=== PATIENT | female | born 1945 | race Caucasian/White ===

== ENCOUNTER 2017-09-24 13:17 | Inpatient (IN) | payer MEDICARE ==
[~2017-09-24] VITALS: Ht 157.5 cm; Wt 56.3 kg
[2017-09-24] VITALS (9 sets, daily range): BP systolic 141–169; BP diastolic 67–99; PULSE 68–89; RESP 14–24; TEMP 97.5–98.3; O2SAT 98–100
[~2017-09-24 13:17] MED LIST: ASPI-516 CHEW; BRIL90TA PO; CARV3.125 PO; EZET10 PO; FAMO1TAB37 PO; LEVO88TA2 PO
[2017-09-24] MEDS ORDERED: IOHEXOL 350 MG/ML 10 ML VIAL (for RAD DIAG) IVCONTRAST ONE (13:18)
[2017-09-24] MEDS ORDERED: SODIUM CHLORIDE 0.9% FLUSH 10 ML FLUSH IVF PRN (14:00)
[2017-09-24 14:23] LABS: AUTOMATED NEUTROPHIL # 8.8 TH/MM3 (1.8-7.7); BASOPHIL % 0.3 % (0.0-2.0); EOSINOPHIL # 0.1 TH/MM3 (0-0.4); HEMOGLOBIN 13.2 GM/DL (11.6-15.3); LYMPH % 12.4 % (9.0-44.0); LYMPHOCYTE # 1.4 TH/MM3 (1.0-4.8); MEAN CELL VOLUME 86.4 FL (80.0-100.0); MEAN CORPUSCULAR HEMOGLOBIN 30.8 PG (27.0-34.0); MEAN CORPUSCULAR HGB CONC 35.6 % (32.0-36.0); MEAN PLATELET VOLUME 7.5 FL (7.0-11.0); MONO % 10.7 % (0.0-8.0); MONOCYTE # 1.2 TH/MM3 (0-0.9); NEUT % 75.6 % (16.0-70.0); PLATELET COUNT 346 TH/MM3 (150-450); RED BLOOD COUNT 4.28 MIL/MM3 (4.00-5.30); RED CELL DISTRIBUTION WIDTH 14.7 % (11.6-17.2); WHITE BLOOD COUNT 11.6 TH/MM3 (4.0-11.0)
--- NOTE | 2017-09-24 14:24 | RADRPT ---
EXAM DATE/TIME: 09/24/2017 14:11 [facility] COMPARISON: CHEST SINGLE AP, September 18, 2017, 16:54. INDICATIONS : Shortness of breath starting today MEDICAL HISTORY : Cardiovascular disease SURGICAL HISTORY : Stent placement ENCOUNTER: Initial ACUITY: 1 day PAIN SCORE: 0/10 LOCATION: Bilateral chest FINDINGS: The heart size is normal. There is increased density at the bases bilaterally. There is blunting of t he costophrenic angles bilaterally being worse in the left. The mid and upper lungs are clear. CONCLUSION: Suspected mild bilateral pleural effusions being worse on the left with some accompanying atelectasis or consolidation at the bases. Bryan Gibbs MD on September 24, 2017 at 14:21 Board Certified Radiologist. This report was verified electronically.
[2017-09-24] MEDS ORDERED: FAMO1TAB37 PO (14:34)
[2017-09-24 14:35] LABS: PROTHROMBIN TIME - PATIENT 10.5 SEC (9.8-11.6)
[2017-09-24 14:48] LABS: ALBUMIN 2.7 GM/DL (3.4-5.0); ALKALINE PHOSPHATASE 80 U/L (45-117); ALT (GPT) 42 U/L (10-53); AST (GOT) 32 U/L (15-37); BICARBONATE 27.1 MEQ/L (21.0-32.0); BLOOD UREA NITROGEN 13 MG/DL (7-18); CALCIUM 8.6 MG/DL (8.5-10.1); CHLORIDE 102 MEQ/L (98-107); CREATININE 0.92 MG/DL (0.50-1.00); GLOMERULAR FILTRATION RATE 60 ML/MIN (>89); GLUCOSE,RANDOM 95 MG/DL (74-106); SODIUM (NA) 136 MEQ/L (136-145); TOTAL PROTEIN 6.7 GM/DL (6.4-8.2)
--- NOTE | 2017-09-24 16:33 | RADRPT ---
EXAM DATE/TIME: 09/24/2017 16:16 [facility] COMPARISON: No previous studies available for comparison. INDICATIONS : Shortness of breath, recent myocardial infarction. IV CONTRAST: 50 cc Omnipaque 350 (iohexol) IV RADIATION DOSE: 6.99 CTDIvol (mGy) MEDICAL HISTORY : Myocardial infarction. Cardiovascular disease SURGICAL HISTORY : Coronary artery stent. ENCOUNTER: Initial ACUITY: 1 day PAIN SCALE: 0/10 LOCATION: Bilateral chest TECHNIQUE: Volumetric scanning of the chest was performed using a pulmonary embolism protocol MIP images were re constructed. Using automated exposure control and adjustment of the mA and/or kV according to patien t size, radiation dose was kept as low as reasonably achievable to obtain optimal diagnostic quality images. DICOM format image data is available electronically for review and comparison. Follow-up recommendations for detected pulmonary nodules are based at a minimum on nodule size and pa tient risk factors according to Fleischner Society Guidelines. FINDINGS: PULMONARY ARTERIES: No filling defects are seen in the pulmonary arteries through the segmental level. LUNGS: There is a mild interstitial infiltrates bilaterally. There is small to moderate bilateral pleural ef fusions. There is compressive atelectasis in both lower lungs. PLEURAE: Small to moderate bilateral effusions. MEDIASTINUM: There is good visualization of the great vessels of the middle mediastinum. No evidence of mediastin al or hilar adenopathy/mass. MUSCULOSKELETAL: Within normal limits for patient age. MISCELLANEOUS: The visualized upper abdominal organs demonstrate no acute abnormality. CONCLUSION: 1. No evidence of PE. 2. Pulmonary edema with small to moderate bilateral pleural effusions and bibasilar atelectasis. Piero Higuera MD on September 24, 2017 at 16:30 Board Certified Radiologist. This report was verified electronically.
--- NOTE | 2017-09-24 17:06 | EKG ---
Date Performed: 09/24/2017 Time Performed: 13:48:36 PTAGE: 72 years EKG: Sinus rhythm LEFT BUNDLE BRANCH BLOCK ABNORMAL ECG PREVIOUS TRACING : 09/19/2017 04.23 Compared to previous tracing, QRS duration has increased sl ightly. DOCTOR: Ethan Holland Interpretating Date/Time 09/24/2017 17:05:32
[2017-09-24] MEDS ORDERED: FUROSEMIDE 40 MG/4 ML VIAL IV PUSH ONE (17:15)
[2017-09-24] MEDS ORDERED: POTASSIUM CHLORIDE 10 MEQ CONTROLLED RELEASE TAB PO ONE (17:15)
--- NOTE | 2017-09-24 17:23 | PD ---
HPI Chief Complaint: Respiratory Symptoms Time Seen by Provider: 13:43 Travel History International Travel<30 days: No Contact w/Intl Traveler<30days: No Traveled to known affect area: No History of Present Illness HPI Patient is a 72-year-old female who comes in complaining of shortness of breath. She was discharged yesterday after being admitted with a STEMI and having a stent placed. She says she was feeling okay, she went home and when she went to sleep last night she could not breathe. She says she tries sitting up in the chair and this did not help. She denies having any more chest pain. She says she feels like her abdomen is bloated. She denies nausea or vomiting. She denies fever chills. She has never had these symptoms before. Severity is moderate. PFSH Past Medical History Hx Anticoagulant Therapy: Yes Heart Rhythm Problems: Yes (PALPATATIONS) Cancer: No Cardiovascular Problems: Yes High Cholesterol: Yes Coronary Artery Disease: Yes Endocrine: No Genitourinary: No Musculoskeletal: No Neurologic: No Psychiatric: No Reproductive: No Respiratory: No Myocardial Infarction: Yes Past Surgical History Abdominal Surgery: Yes Cardiac Surgery: Yes (HEART CATH X2 IN PAST) Coronary Stent: Yes Ear Surgery: No Endocrine Surgery: No Eye Surgery: No Genitourinary Surgery: No Gynecologic Surgery: Yes (C SECTION) Oral Surgery: No Thoracic Surgery: No Other Surgery: Yes Social History Alcohol Use: No Tobacco Use: No Substance Use: No Allergies-Medications (Allergen,Severity, Reaction): Coded Allergies: NSAIDS (Non-Steroidal Anti-Inflamma (Verified Allergy, Unknown, 09/24/17) morphine (Verified Allergy, Unknown, 09/24/17) CHEST PAIN prednisone (Verified Allergy, Unknown, 09/24/17) CHEST PAIN Uncoded Allergies: CHOLESTEROL MEDICATIONS (Allergy, Unknown, 09/18/17) Reported Meds & Prescriptions Reported Meds & Active Scripts Active Brilinta (Ticagrelor) 90 Mg Tab 90 Mg PO BID Coreg (Carvedilol) 3.125 Mg Tab 3.125 Mg PO Q12HR Reported Pepcid (Famotidine) 20 Mg Tab 10 Mg PO BID Levothyroxine (Levothyroxine Sodium) 88 Mcg Tab 88 Mcg PO DAILY Aspirin 81 Mg Chew 81 Mg CHEW DAILY Review of Systems Except as stated in HPI: all other systems reviewed are Neg General / Constitutional: No: Fever, Chills Eyes: No: Blurred Vision HENT: No: Headaches, Lightheadedness Cardiovascular: No: Chest Pain or Discomfort Respiratory: Positive: Cough, Shortness of Breath Gastrointestinal: No: Nausea, Vomiting Musculoskeletal: No: Myalgias, Edema Skin: No Rash, No Change in Pigmentation Neurologic: No: Weakness, Dizziness Physical Exam Narrative GENERAL: Awake alert, in no acute distress. SKIN: Focused skin assessment warm/dry. HEAD: Atraumatic. Normocephalic. EYES: Pupils equal and round. No scleral icterus. ENT: Mucous membranes pink and moist. NECK: Trachea midline. No JVD. CARDIOVASCULAR: Regular rate and rhythm. No murmur appreciated. RESPIRATORY: No accessory muscle use. decreased breath sounds as well as crackles at both lung bases. Breath sounds equal bilaterally. GASTROINTESTINAL: Abdomen soft, non-tender, nondistended. Hepatic and splenic margins not palpable. MUSCULOSKELETAL: No obvious deformities. No clubbing. No cyanosis. No edema. NEUROLOGICAL: Awake and alert. No obvious cranial nerve deficits. Motor grossly within normal limits. Normal speech. PSYCHIATRIC: Appropriate mood and affect; insight and judgment normal. Data Data Last Documented VS Vital Signs Date Time Temp Pulse Resp B/P (MAP) Pulse Ox O2 Delivery O2 Flow Rate FiO2 09/24/17 15:28 76 19 169/79 (109) 100 Nasal Cannula 2.00 09/24/17 13:18 98.3 Orders Orders Complete Blood Count With Diff (09/24/17 13:52) Comprehensive Metabolic Panel (09/24/17 13:52) Act Partial Throm Time (Ptt) (09/24/17 13:52) Prothrombin Time / Inr (Pt) (09/24/17 13:52) Ckmb (Isoenzyme) Profile (09/24/17 13:52) Troponin I (09/24/17 13:52) Iv Access Insert/Monitor (09/24/17 13:52) Ecg Monitoring (09/24/17 13:52) Oximetry (09/24/17 13:52) Oxygen Administration (09/24/17 13:52) Chest, Single Ap (09/24/17 13:52) Ct Pulmonary Angiogram (09/24/17 13:52) Sodium Chloride 0.9% Flush (Ns Flush) (09/24/17 14:00) B-Type Natriuretic Peptide (09/24/17 13:55) CKMB (09/24/17 14:05) CKMB% (09/24/17 14:05) Electrocardiogram (09/24/17 13:48) Iohexol 350 Inj (Omnipaque 350 Inj) (09/24/17 13:18) Furosemide Inj (Lasix Inj) (09/24/17 17:15) Potassium Chloride (Kcl) (09/24/17 17:15) Admit Order (Ed Use Only) (09/24/17 ) Labs Laboratory Tests Test 09/24/17 14:05 White Blood Count 11.6 TH/MM3 Red Blood Count 4.28 MIL/MM3 Hemoglobin 13.2 GM/DL Hematocrit 37.0 % Mean Corpuscular Volume 86.4 FL Mean Corpuscular Hemoglobin 30.8 PG Mean Corpuscular Hemoglobin Concent 35.6 % Red Cell Distribution Width 14.7 % Platelet Count 346 TH/MM3 Mean Platelet Volume 7.5 FL Neutrophils (%) (Auto) 75.6 % Lymphocytes (%) (Auto) 12.4 % Monocytes (%) (Auto) 10.7 % Eosinophils (%) (Auto) 1.0 % Basophils (%) (Auto) 0.3 % Neutrophils # (Auto) 8.8 TH/MM3 Lymphocytes # (Auto) 1.4 TH/MM3 Monocytes # (Auto) 1.2 TH/MM3 Eosinophils # (Auto) 0.1 TH/MM3 Basophils # (Auto) 0.0 TH/MM3 CBC Comment DIFF FINAL Differential Comment Prothrombin Time 10.5 SEC Prothromb Time International Ratio 1.0 RATIO Activated Partial Thromboplast Time 24.7 SEC Blood Urea Nitrogen 13 MG/DL Creatinine 0.92 MG/DL Random Glucose 95 MG/DL Total Protein 6.7 GM/DL Albumin 2.7 GM/DL Calcium Level 8.6 MG/DL Alkaline Phosphatase 80 U/L Aspartate Amino Transf (AST/SGOT) 32 U/L Alanine Aminotransferase (ALT/SGPT) 42 U/L Total Bilirubin 1.0 MG/DL Sodium Level 136 MEQ/L Potassium Level 3.3 MEQ/L Chloride Level 102 MEQ/L Carbon Dioxide Level 27.1 MEQ/L Anion Gap 7 MEQ/L Estimat Glomerular Filtration Rate 60 ML/MIN Total Creatine Kinase 114 U/L Creatine Kinase MB 1.6 NG/ML Troponin I 2.70 NG/ML B-Type Natriuretic Peptide 1002 PG/ML MDM Medical Decision Making Medical Screen Exam Complete: Yes Emergency Medical Condition: Yes Medical Record Reviewed: Yes Interpretation(s) ECG shows left bundle branch block Differential Diagnosis CHF versus pneumonia versus PE Narrative Course Patient is a 72-year-old female who comes in complaining of shortness of breath. She was just discharged after having a STEMI. Exam shows decreased breath sounds and crackles at both lung bases. IV established, labs sent. Chest x-ray shows bilateral pleural effusions. BNP is elevated to 1000. Troponin is elevated, but it is coming down from where it was. CTA of the chest shows no evidence of PE, there are bilateral pleural effusions. Patient given a dose of Lasix and potassium. She will be admitted for further management. Last 24 hours Impressions Chest X-Ray 09/24/17 1352 Signed Impressions: Service Date/Time: Sunday, September 24, 2017 14:11 - CONCLUSION: Suspected mild bilateral pleural effusions being worse on the left with some accompanying atelectasis or consolidation at the bases. Bryan Gibbs MD CT Angiography 09/24/17 1352 Signed Impressions: Service Date/Time: Sunday, September 24, 2017 16:16 - CONCLUSION: 1. No evidence of PE. 2. Pulmonary edema with small to moderate bilateral pleural effusions and bibasilar atelectasis. Piero Higuera MD Diagnosis Primary Impression: CHF (congestive heart failure) Qualified Codes: I50.21 - Acute systolic (congestive) heart failure Admitting Information Admitting Physician Requests: Admit Yasmin Chahal MD Sep 24, 2017 17:23
--- NOTE | 2017-09-24 17:56 | HHI.HP ---
[facility] No Primary Care Physician Admission Diagnosis CHF exacerbation Diagnoses: Travel History International Travel<30 Days: No Contact w/Intl Traveler <30 Da: No Traveled to Known Affected Are: No History of Present Illness SOB that began last night she tried to lay down. Coughing began when she was in the hospital repots that she gained 10LB. cough since she was in the hospital but feels like something is stuck NO CHF history Past Family Social History Allergies: Coded Allergies: NSAIDS (Non-Steroidal Anti-Inflamma (Verified Allergy, Unknown, 09/24/17) morphine (Verified Allergy, Unknown, 09/24/17) CHEST PAIN prednisone (Verified Allergy, Unknown, 09/24/17) CHEST PAIN Uncoded Allergies: CHOLESTEROL MEDICATIONS (Allergy, Unknown, 09/18/17) Physical Exam Vital Signs Vital Signs Date Time Temp Pulse Resp B/P (MAP) Pulse Ox O2 Delivery O2 Flow Rate FiO2 09/24/17 15:28 76 19 169/79 (109) 100 Nasal Cannula 2.00 09/24/17 14:12 82 22 164/86 (112) 100 Room Air 09/24/17 13:56 100 Room Air 09/24/17 13:56 100 Room Air 09/24/17 13:51 100 Room Air 09/24/17 13:18 98.3 87 14 163/99 (120) 100 Room Air Physical Exam GENERAL: This is a well-nourished, well-developed patient, in no apparent distress. SKIN: No rashes, ecchymoses or lesions. Cool and dry. HEAD: Atraumatic. Normocephalic. No temporal or scalp tenderness. EYES: Pupils equal round and reactive. Extraocular motions intact. No scleral icterus. No injection or drainage. ENT: Nose without bleeding, purulent drainage or septal hematoma. Throat without erythema, tonsillar hypertrophy or exudate. Uvula midline. Airway patent. NECK: Trachea midline. No JVD or lymphadenopathy. Supple, nontender, no meningeal signs. CARDIOVASCULAR: Regular rate and rhythm without murmurs, gallops, or rubs. RESPIRATORY: Clear to auscultation. Breath sounds equal bilaterally. No wheezes , rales, or rhonchi. GASTROINTESTINAL: Abdomen soft, non-tender, nondistended. No hepato-splenomegaly , or palpable masses. No guarding. MUSCULOSKELETAL: Extremities without clubbing, cyanosis, or edema. No joint tenderness, effusion, or edema noted. No calf tenderness. Negative Homans sign bilaterally. NEUROLOGICAL: Awake and alert. Cranial nerves II through XII intact. Motor and sensory grossly within normal limits. Five out of 5 muscle strength in all muscle groups. Normal speech. Laboratory Laboratory Tests Test 09/24/17 14:05 White Blood Count 11.6 Red Blood Count 4.28 Hemoglobin 13.2 Hematocrit 37.0 Mean Corpuscular Volume 86.4 Mean Corpuscular Hemoglobin 30.8 Mean Corpuscular Hemoglobin Concent 35.6 Red Cell Distribution Width 14.7 Platelet Count 346 Mean Platelet Volume 7.5 Neutrophils (%) (Auto) 75.6 Lymphocytes (%) (Auto) 12.4 Monocytes (%) (Auto) 10.7 Eosinophils (%) (Auto) 1.0 Basophils (%) (Auto) 0.3 Neutrophils # (Auto) 8.8 Lymphocytes # (Auto) 1.4 Monocytes # (Auto) 1.2 Eosinophils # (Auto) 0.1 Basophils # (Auto) 0.0 CBC Comment DIFF FINAL Differential Comment Prothrombin Time 10.5 Prothromb Time International Ratio 1.0 Activated Partial Thromboplast Time 24.7 Blood Urea Nitrogen 13 Creatinine 0.92 Random Glucose 95 Total Protein 6.7 Albumin 2.7 Calcium Level 8.6 Alkaline Phosphatase 80 Aspartate Amino Transf (AST/SGOT) 32 Alanine Aminotransferase (ALT/SGPT) 42 Total Bilirubin 1.0 Sodium Level 136 Potassium Level 3.3 Chloride Level 102 Carbon Dioxide Level 27.1 Anion Gap 7 Estimat Glomerular Filtration Rate 60 Total Creatine Kinase 114 Creatine Kinase MB 1.6 Troponin I 2.70 B-Type Natriuretic Peptide 1002 Result Diagram: 09/24/17 1405 09/24/17 1405 Caprini VTE Risk Assessment Caprini Risk Assessment Model Point Value = 1 Point Value = 2 Point Value = 3 Point Value = 5 Age 41-60 Minor surgery BMI > 25 kg/m2 Swollen legs Varicose veins or History of unexplained or recurrent spontaneous Oral contraceptives or hormone replacement Sepsis (< 1 month) Serious lung disease, including pneumonia (< 1 month) Abnormal pulmonary function Acute myocardial infarction Congestive heart failure (< 1 month) History of inflammatory bowel disease Medical patient at bed rest Age 61-74 Arthroscopic surgery Major open surgery (> 45 min) Laparoscopic surgery (> 45 min) Malignancy Confined to bed (> 72 hours) Immobilizing plaster cast Central venous access Age >= 75 History of VTE Family history of VTE Factor V Leiden Prothrombin [id number] Lupus anticoagulant Anticardiolipin antibodies Elevated serum homocysteine Heparin-induced thrombocytopenia Other congenital or acquired thrombophilia Stroke (< 1 month) Elective arthroplasty Hip, pelvis, or leg fracture Acute spinal cord injury (< 1 month) Prophylaxis Regimen Total Risk Factor Score Risk Level Prophylaxis Regimen 0-1 Low Early ambulation 2 Moderate Order ONE of the following: *Sequential Compression Device (SCD) *Heparin 5000 units SQ BID 3-4 Higher Order ONE of the following medications: *Heparin 5000 units SQ TID *Enoxaparin/Lovenox 40 mg SQ daily (WT < 150 kg, CrCl > 30 mL/min) *Enoxaparin/Lovenox 30 mg SQ daily (WT < 150 kg, CrCl > 10-29 mL/min) *Enoxaparin/Lovenox 30 mg SQ BID (WT < 150 kg, CrCl > 30 mL/min) AND/OR *Sequential Compression Device (SCD) 5 or more Highest Order ONE of the following medications: *Heparin 5000 units SQ TID (Preferred with Epidurals) *Enoxaparin/Lovenox 40 mg SQ daily (WT < 150 kg, CrCl > 30 mL/min) *Enoxaparin/Lovenox 30 mg SQ daily (WT < 150 kg, CrCl > 10-29 mL/min) *Enoxaparin/Lovenox 30 mg SQ BID (WT < 150 kg, CrCl > 30 mL/min) AND *Sequential Compression Device (SCD) Physician Certification Order for Inpatient Services The services are ordered in accordance with Medicare regulations or non- Medicare payer requirements, as applicable. In the case of services not specified as inpatient-only, they are appropriately provided as inpatient services in accordance with the 2-midnight benchmark. days is the estimated time the patient will need to remain in the hospital, assuming treatment plan goals are met and no additional complications. Masha Salas Sep 24, 2017 17:56
--- NOTE | 2017-09-24 18:08 | HHI.HP ---
[facility] No Primary Care Physician Admission Diagnosis CHF exacerbation Diagnoses: (1) CHF (congestive heart failure) Diagnosis: Principal (2) Atrial fibrillation Chief Complaint: Shortness breath Travel History International Travel<30 Days: No Contact w/Intl Traveler <30 Da: No Traveled to Known Affected Are: No History of Present Illness Ms. Grigsby is a 72-year-old female with past medical history A. fib, CAD with recent NSTEMI, cardiac shock and hypothyroidism who was recently discharged on 09/23. Patient was recently admitted on 09/18 for NSTEMI and underwent PCI to RCA by . Patient subsequently developed hypotension treated with IV pressors. She also developed anemia due and right groin hematoma for which GI was consulted. Patient was transfused with 2 units of PRBCs, no EGD or colonoscopy done by GI services. She was cleared for discharge and went home. Patient reports that yesterday after leaving she began to experience shortness of breath when lying down and trying to go to bed. Sitting up and resting will decrease shortness of breath, lying down and activity will exacerbate SOB. She also reports cough which is nonproductive. She denies any fevers, chills, nausea, vomiting, diarrhea or headaches. Patient reports since leaving hospital she has noticed that her clothing has fit tighter and she is also feel tighter. Since being in the hospital reports that she has gained 10 pounds. Currently she is seen and examined sitting on the bedside commode and reports she just received Lasix. Currently she denies any shortness of breath on room air, denies chest pain or palpitations, lightheadedness or dizziness. She is hoping to possibly go home tomorrow. Review of Systems Except as stated in HPI: all other systems reviewed are Neg Past Family Social History Past Medical History A. fib CAD NSTEMI with PCI to RCA hypothyroidism Past Surgical History Cardiac cath Reported Medications Reported Meds & Active Scripts Active Brilinta (Ticagrelor) 90 Mg Tab 90 Mg PO BID Coreg (Carvedilol) 3.125 Mg Tab 3.125 Mg PO Q12HR Reported Pepcid (Famotidine) 20 Mg Tab 10 Mg PO BID Levothyroxine (Levothyroxine Sodium) 88 Mcg Tab 88 Mcg PO DAILY Aspirin 81 Mg Chew 81 Mg CHEW DAILY Allergies: Coded Allergies: NSAIDS (Non-Steroidal Anti-Inflamma (Verified Allergy, Unknown, 09/24/17) morphine (Verified Allergy, Unknown, 09/24/17) CHEST PAIN prednisone (Verified Allergy, Unknown, 09/24/17) CHEST PAIN Uncoded Allergies: CHOLESTEROL MEDICATIONS (Allergy, Unknown, 09/18/17) Family History No past family cardiac history. Social History Denies tobacco, alcohol, or illicit drug use. Physical Exam Vital Signs Vital Signs Date Time Temp Pulse Resp B/P (MAP) Pulse Ox O2 Delivery O2 Flow Rate FiO2 09/24/17 15:28 76 19 169/79 (109) 100 Nasal Cannula 2.00 09/24/17 14:12 82 22 164/86 (112) 100 Room Air 09/24/17 13:56 100 Room Air 09/24/17 13:56 100 Room Air 09/24/17 13:51 100 Room Air 09/24/17 13:18 98.3 87 14 163/99 (120) 100 Room Air Physical Exam GENERAL: This is a well-nourished, well-developed patient, in no apparent distress. SKIN: No rashes, ecchymoses or lesions. Cool and dry. HEAD: Atraumatic. Normocephalic. EYES: Pupils equal round and reactive. No scleral icterus. No injection or drainage. ENT: Nose without bleeding, purulent. Airway patent. NECK: Trachea midline. No JVD. Supple, nontender. CARDIOVASCULAR: Regular rate and rhythm without murmurs, gallops, or rubs. RESPIRATORY: Clear to auscultation. Breath sounds equal bilaterally. No wheezes , rales, or rhonchi. GASTROINTESTINAL: Abdomen soft, non-tender, nondistended. No guarding. MUSCULOSKELETAL: Extremities without clubbing, cyanosis, or edema. No joint tenderness, effusion, or edema noted. No calf tenderness. NEUROLOGICAL: Awake and alert. Cranial nerves II through XII intact. Motor and sensory grossly within normal limits. Five out of 5 muscle strength in all muscle groups. Normal speech. Laboratory Laboratory Tests Test 09/24/17 14:05 White Blood Count 11.6 Red Blood Count 4.28 Hemoglobin 13.2 Hematocrit 37.0 Mean Corpuscular Volume 86.4 Mean Corpuscular Hemoglobin 30.8 Mean Corpuscular Hemoglobin Concent 35.6 Red Cell Distribution Width 14.7 Platelet Count 346 Mean Platelet Volume 7.5 Neutrophils (%) (Auto) 75.6 Lymphocytes (%) (Auto) 12.4 Monocytes (%) (Auto) 10.7 Eosinophils (%) (Auto) 1.0 Basophils (%) (Auto) 0.3 Neutrophils # (Auto) 8.8 Lymphocytes # (Auto) 1.4 Monocytes # (Auto) 1.2 Eosinophils # (Auto) 0.1 Basophils # (Auto) 0.0 CBC Comment DIFF FINAL Differential Comment Prothrombin Time 10.5 Prothromb Time International Ratio 1.0 Activated Partial Thromboplast Time 24.7 Blood Urea Nitrogen 13 Creatinine 0.92 Random Glucose 95 Total Protein 6.7 Albumin 2.7 Calcium Level 8.6 Alkaline Phosphatase 80 Aspartate Amino Transf (AST/SGOT) 32 Alanine Aminotransferase (ALT/SGPT) 42 Total Bilirubin 1.0 Sodium Level 136 Potassium Level 3.3 Chloride Level 102 Carbon Dioxide Level 27.1 Anion Gap 7 Estimat Glomerular Filtration Rate 60 Total Creatine Kinase 114 Creatine Kinase MB 1.6 Troponin I 2.70 B-Type Natriuretic Peptide 1002 Result Diagram: 09/24/17 1405 09/24/17 1405 Imaging Last Impressions Chest X-Ray 09/24/17 1352 Signed Impressions: Service Date/Time: Sunday, September 24, 2017 14:11 - CONCLUSION: Suspected mild bilateral pleural effusions being worse on the left with some accompanying atelectasis or consolidation at the bases. Bryan Gibbs MD CT Angiography 09/24/17 1352 Signed Impressions: Service Date/Time: Sunday, September 24, 2017 16:16 - CONCLUSION: 1. No evidence of PE. 2. Pulmonary edema with small to moderate bilateral pleural effusions and bibasilar atelectasis. MD Aleksandr Lombardi VTE Risk Assessment Caprini VTE Risk Assessment: Mod/High Risk (score >= 2) Caprini Risk Assessment Model Point Value = 1 Point Value = 2 Point Value = 3 Point Value = 5 Age 41-60 Minor surgery BMI > 25 kg/m2 Swollen legs Varicose veins or History of unexplained or recurrent spontaneous Oral contraceptives or hormone replacement Sepsis (< 1 month) Serious lung disease, including pneumonia (< 1 month) Abnormal pulmonary function Acute myocardial infarction Congestive heart failure (< 1 month) History of inflammatory bowel disease Medical patient at bed rest Age 61-74 Arthroscopic surgery Major open surgery (> 45 min) Laparoscopic surgery (> 45 min) Malignancy Confined to bed (> 72 hours) Immobilizing plaster cast Central venous access Age >= 75 History of VTE Family history of VTE Factor V Leiden Prothrombin [id number] Lupus anticoagulant Anticardiolipin antibodies Elevated serum homocysteine Heparin-induced thrombocytopenia Other congenital or acquired thrombophilia Stroke (< 1 month) Elective arthroplasty Hip, pelvis, or leg fracture Acute spinal cord injury (< 1 month) Prophylaxis Regimen Total Risk Factor Score Risk Level Prophylaxis Regimen 0-1 Low Early ambulation 2 Moderate Order ONE of the following: *Sequential Compression Device (SCD) *Heparin 5000 units SQ BID 3-4 Higher Order ONE of the following medications: *Heparin 5000 units SQ TID *Enoxaparin/Lovenox 40 mg SQ daily (WT < 150 kg, CrCl > 30 mL/min) *Enoxaparin/Lovenox 30 mg SQ daily (WT < 150 kg, CrCl > 10-29 mL/min) *Enoxaparin/Lovenox 30 mg SQ BID (WT < 150 kg, CrCl > 30 mL/min) AND/OR *Sequential Compression Device (SCD) 5 or more Highest Order ONE of the following medications: *Heparin 5000 units SQ TID (Preferred with Epidurals) *Enoxaparin/Lovenox 40 mg SQ daily (WT < 150 kg, CrCl > 30 mL/min) *Enoxaparin/Lovenox 30 mg SQ daily (WT < 150 kg, CrCl > 10-29 mL/min) *Enoxaparin/Lovenox 30 mg SQ BID (WT < 150 kg, CrCl > 30 mL/min) AND *Sequential Compression Device (SCD) Assessment and Plan Assessment and Plan Ms. Grigsby is a 72-year-old female with past medical history A. fib, CAD with recent NSTEMI, cardiac shock and hypothyroidism who was recently discharged on 09/23 where she underwent PCI to RCA by due to NSTEMI. She subsequently developed anemia and groin hematoma following heart cath, transfused with PRBCs. Cleared for discharge and went home yesterday and subsequently began developing shortness of breath. CHF exacerbation -Complaints of shortness of breath when lying down and with activity as well as cough. -BNP 1002 -Chest x-ray reviewed, mild bilateral pleural effusions L>R with atelectasis -CTA reviewed, no PE, pulmonary edema with small to moderate bilateral pleural effusions and bilateral atelectasis. -Echo completed on 09/19/17 reviewed, EF 45-50% no regional wall motion abnormalities, left ventricle size appears normal. -Patient received 40 mg of IV Lasix along with 50 meq's of KCl due to mild hypokalemia -Will continue Lasix 20 mg IV twice daily, monitor electrolytes -Currently on room air with 98% oxygen saturation, denies shortness of breath. -Admitted to observation unit, anticipate discharge likely tomorrow CAD recent NSTEMI -Patient recently underwent heart cath with PCI to RCA -Continue low-dose aspirin, Zetia, beta-cele, and Brilinta -Troponin level trending down, patient denies chest pain. Atrial fibrillation -Patient currently in normal sinus rhythm -We will continue beta-cele Hypothyroidism -Continue home dose Synthroid DVT prophylaxis-SCDs, early ambulation Attending Statement The exam, history, and the medical decision-making described in the above note were completed with the assistance of the mid-level provider. I reviewed and agree with the findings presented. I attest that I had a [id number] encounter with the patient on the same day, and personally performed and documented my assessment and findings in the medical record. patient c/o fatigue, SOB and weight gain. Patient recently discharged from the hospital 1 day ago due to NSTEMI. Denied any Chest pain. She received IV Lasix by the ED provider when she says she is urinating a lot. Her nurses at the bedside during the interview. Patient stated she is very anxious to go home tomorrow. Gen NAD CV RRR. no r/m/g Resp CTA B/L LE negative edema CHF exacerbation Respiratory failure with hypoxia BNP elevated at 1000. CTA did not show PE but showed bilateral pleural effusion. And pulmonary edema. Patient given a dose of Lasix in the ED. We will continue with Lasix. She is not hypoxic. Anticipating possible discharge in 1-2 days. Strict ins and out. Continue to monitor creatinine. Can most likely switch to oral Lasix tomorrow. Problem Qualifiers (1) CHF (congestive heart failure): Qualified Codes: I50.21 - Acute systolic (congestive) heart failure Masha Salas Sep 24, 2017 18:08 Gifty Francis MD Sep 24, 2017 18:45
[2017-09-24] MEDS ORDERED: NALOXONE HCL 0.4 MG/ML AMP IV PUSH PRN (18:15)
[2017-09-24] MEDS ORDERED: SENNOSIDES 8.6 MG TAB PO PRN (18:15)
[2017-09-24] MEDS ORDERED: ACETAMINOPHEN 325 MG TAB PO PRN (18:15)
[2017-09-24] MEDS ORDERED: BISACODYL 10 MG SUPP RECTAL PRN (18:15)
[2017-09-24] MEDS ORDERED: ONDANSETRON HCL 4 MG/2 ML VIAL IVP PRN (18:15)
[2017-09-24] MEDS ORDERED: MAGNESIUM HYDROXIDE SUSP 30 ML CUP PO PRN (18:15)
[2017-09-24] MEDS ORDERED: LACTULOSE SYRUP 20 GM/30 ML CUP PO PRN (18:15)
[2017-09-24] MEDS ORDERED: PILL SPLITTER OTHER PRN (18:30)
[2017-09-24] MEDS: DOCUSATE SODIUM 50 MG/SENNA 8.6 MG TAB PO SCH (21:00)
[2017-09-24] MEDS: TICAGRELOR 90 MG TAB PO SCH (21:35)
[2017-09-24] MEDS: CARVEDILOL 3.125 MG TAB PO SCH (21:35)
[2017-09-24] MEDS: FAMOTIDINE 20 MG TAB PO SCH (21:35)
[2017-09-25] VITALS (13 sets, daily range): BP systolic 118–157; BP diastolic 56–79; PULSE 69–82; RESP 16–20; TEMP 98–98.4; O2SAT 94–98
[2017-09-25] MEDS ORDERED: LEVOTHYROXINE SODIUM 88 MCG TAB PO SCH (06:00)
[2017-09-25 07:27] LABS: ALBUMIN 2.5 GM/DL (3.4-5.0); AST (GOT) 25 U/L (15-37); BICARBONATE 27.4 MEQ/L (21.0-32.0); BLOOD UREA NITROGEN 18 MG/DL (7-18); CALCIUM 8.4 MG/DL (8.5-10.1); CHLORIDE 103 MEQ/L (98-107); CREATININE 0.84 MG/DL (0.50-1.00); GLOMERULAR FILTRATION RATE 67 ML/MIN (>89); GLUCOSE,RANDOM 81 MG/DL (74-106); SODIUM (NA) 137 MEQ/L (136-145)
[2017-09-25 07:30] LABS: ALKALINE PHOSPHATASE 68 U/L (45-117); ALT (GPT) 33 U/L (10-53)
[2017-09-25] MEDS: EZETIMIBE 10 MG TAB PO SCH (09:00)
[2017-09-25] MEDS ORDERED: FUROSEMIDE 40 MG TAB PO SCH (09:00)
[2017-09-25] MEDS: DOCUSATE SODIUM 50 MG/SENNA 8.6 MG TAB PO SCH ×2 (09:00→21:00)
[2017-09-25] MEDS: FUROSEMIDE 20 MG/2 ML VIAL IV PUSH SCH ×3 (09:00→17:42)
[2017-09-25] MEDS: CARVEDILOL 3.125 MG TAB PO SCH ×2 (09:05→21:25)
[2017-09-25] MEDS: ASPIRIN 81 MG CHEW TAB CHEW SCH (09:05)
[2017-09-25] MEDS: FAMOTIDINE 20 MG TAB PO SCH ×2 (09:05→21:26)
[2017-09-25] MEDS: TICAGRELOR 90 MG TAB PO SCH ×2 (09:05→21:25)
--- NOTE | 2017-09-25 09:11 | HHI.PR ---
Subjective Remarks feeling better no chest pain , occasional palpitation diuresing well with IV Lasix mild righ lower abdominal discomfort Objective Vitals Vital Signs Date Time Temp Pulse Resp B/P (MAP) Pulse Ox O2 Delivery O2 Flow Rate FiO2 09/25/17 09:03 98.1 74 20 131/68 (89) 98 09/25/17 04:00 98.4 74 16 118/56 (76) 96 09/25/17 03:43 72 09/25/17 00:00 98.2 76 16 128/63 (84) 94 09/24/17 23:42 68 09/24/17 20:00 97.5 79 17 150/71 (97) 99 09/24/17 19:53 78 09/24/17 18:32 09/24/17 18:16 80 22 141/67 (91) 98 Room Air 09/24/17 18:08 89 24 145/85 (105) 100 Room Air 09/24/17 15:28 76 19 169/79 (109) 100 Nasal Cannula 2.00 09/24/17 14:12 82 22 164/86 (112) 100 Room Air 09/24/17 13:56 100 Room Air 09/24/17 13:56 100 Room Air 09/24/17 13:51 100 Room Air 09/24/17 13:18 98.3 87 14 163/99 (120) 100 Room Air I/O 09/24/17 09/24/17 09/24/17 09/25/17 09/25/17 09/25/17 07:00 15:00 23:00 07:00 15:00 23:00 Intake Total 90 ml Output Total 550 ml 450 ml Balance -550 ml -360 ml Intake Oral 90 ml Output Urine Total 550 ml 450 ml # Voids 1 5 Result Diagram: 09/24/17 1405 09/25/17 0530 Imaging Last Impressions Chest X-Ray 09/24/17 1352 Signed Impressions: Service Date/Time: Sunday, September 24, 2017 14:11 - CONCLUSION: Suspected mild bilateral pleural effusions being worse on the left with some accompanying atelectasis or consolidation at the bases. Bryan Gibbs MD CT Angiography 09/24/17 1352 Signed Impressions: Service Date/Time: Sunday, September 24, 2017 16:16 - CONCLUSION: 1. No evidence of PE. 2. Pulmonary edema with small to moderate bilateral pleural effusions and bibasilar atelectasis. Piero Higuera MD Objective Remarks awake and alert, no acute distress anicteric decrease breath sounds bases , no wheezes, no rales regular rhythm abdomen soft. mass- right lower quadran/inguinal area- slightly tender on deep palpation around 3 cm x 4 cm + ecchymoses- lower abdomen/right groin area- most on the right LQ area extremities- trace pretibial edema neruo exam - non focal A/P Problem List: (1) CHF (congestive heart failure) ICD Code: I50.9 - Heart failure, unspecified Status: Acute (2) Atrial fibrillation ICD Code: I48.91 - Unspecified atrial fibrillation Assessment and Plan Ms. Grigsby is a 72-year-old female with medical history past A. fib, CAD with recent NSTEMI, cardiac shock and hypothyroidism who was recently discharged on 09/23 where she underwent PCI to RCA by due to NSTEMI. complicated by right retroperitoneal/groin hematoma - requiring transfusion 2 unis now admitted with acute shortness of breath Acute CHF -with underlying ischemic cardiomyopathy EF of 45-50% REcent CAD S/P PCI to RCA- 09/18 - continue on IV diuresis 20 mg q 12- change to po in am if continues to improve - Continue Brilinta, Coreg - Continue low-dose aspirin, Brilinta, - unable to tolerate statins. refused Zetia - start PATRICE enalapril 2.5 mg daily -cardiology consult- Dr. White Atrial fibrillation- current in SR - on Brilinta/ASA Hypokalemia- resolved ff BMP Hypothyroidism- TSH elevated states she has been 88 mncg daily for years - increase to 100 mcg daily. check free T3T4 needs PCP ff- recheck in 4- 6 weeks Right lower quadrant mass- likely hematoma from previous cath site S/P 2 units RBC last admission for acute anemia H and H good ff in am DVT prophylaxis-SCDs, early ambulation Problem Qualifiers (1) CHF (congestive heart failure): Qualified Codes: I50.21 - Acute systolic (congestive) heart failure Ita Price MD Sep 25, 2017 09:11
[2017-09-25 10:08] LABS: FREE T3 1.09 PG/ML (2.18-3.98)
--- NOTE | 2017-09-25 19:44 | PD.CONS ---
HPI Service Cardiology Consult Requested By Hospitalist Reason for Consult CHF Primary Care Physician No Primary Care Physician History of Present Illness Ms. Grigsby is a 72 year old known to Dr. White. She has a history of CAD, paroxysmal atrial fibrillation, hypothyroidism. She was recently admitted with NSTEMI and underwent PCI/stenting of the RCA by Dr. White on 09/18/17. She reportedly developed hematoma at her cath site and required blood transfusions at that time. She was discharged home around 09/23/17 and returned on the with complaints of increased shortness of breath, orthopnea, abdominal bloating. She reports 10 pound weight gain during her hospitalization. Recent echocardiogram shows EF 45-50%. Work up in the ED revealed elevated BNP 1002. CXR - bilateral pleural effusions. CTA chest was negative for PE. EKG - Sinus rhythm, LBBB. She received IV lasix and has been diuresing well. She denies chest pain, palpitations. Her shortness of breath has improved. She is currently resting in bed without distress. Review of Systems Consitutional: COMPLAINS OF: Weight gain, DENIES: Fatigue, Fever, Chills, Weight loss Eyes: DENIES: Amaurosis Fugax, Change in vision HEENT: DENIES: Lightheadedness, Change in hearing Respiratory: DENIES: See HPI, Cough, Snoring, Shortness of breath, Wheezing, Sputum production Cardiovascular: DENIES: See HPI, Chest pain, Palpitations, Syncope, Tachycardia Gastrointestinal: DENIES: Nausea, Vomiting, Change in bowel habits, Reflux, Bloody stools, Melena Genitourinary: DENIES: Urinary incontinence, Difficulty voiding Integumentary: DENIES: Rash Neurologic: DENIES: Tingling or numbness, Memory problems, Poor Balance, Stroke symptoms Musculoskeletal: DENIES: Joint pain, Muscle pain, Limited range of motion, Back pain Psychiatric: DENIES: Anxiety, Depression, Sleep disturbances Hematologic: DENIES: Bruising tendencies, Bleeding tendencies Endocrine: COMPLAINS OF: Weight gain, DENIES: Weight loss, Thyroid disease Past Family Social History Allergies: Coded Allergies: NSAIDS (Non-Steroidal Anti-Inflamma (Verified Allergy, Unknown, 09/24/17) morphine (Verified Allergy, Unknown, 09/24/17) CHEST PAIN prednisone (Verified Allergy, Unknown, 09/24/17) CHEST PAIN Uncoded Allergies: CHOLESTEROL MEDICATIONS (Allergy, Unknown, 09/18/17) Past Medical History CAD NSTEMI with stent RCA Paroxysmal atrial fibrillation Hypothyroidism Past Surgical History Stent to RCA Reported Medications Reported Meds & Active Scripts Active Brilinta (Ticagrelor) 90 Mg Tab 90 Mg PO BID Coreg (Carvedilol) 3.125 Mg Tab 3.125 Mg PO Q12HR Reported Pepcid (Famotidine) 20 Mg Tab 10 Mg PO BID Levothyroxine (Levothyroxine Sodium) 88 Mcg Tab 88 Mcg PO DAILY Aspirin 81 Mg Chew 81 Mg CHEW DAILY Active Ordered Medications Current Medications Medications (Trade) Dose Ordered Sig/Shaunna Route Start Time Stop Time Status Last Admin (NS Flush) 2 ml UNSCH PRN IVF 09/24/17 14:00 09/24/17 17:37 (Tylenol) 650 mg Q4H PRN PO 09/24/17 18:15 (Zofran Inj) 4 mg Q6H PRN IVP 09/24/17 18:15 (Narcan Inj) 0.4 mg UNSCH PRN IV PUSH 09/24/17 18:15 (Deborah-Colace) 1 tab BID PO 09/24/17 21:00 (Milk Of Magnesia Liq) 30 ml Q12H PRN PO 09/24/17 18:15 (Senokot) 17.2 mg Q12H PRN PO 09/24/17 18:15 (Dulcolax Supp) 10 mg DAILY PRN RECTAL 09/24/17 18:15 (Lactulose Liq) 30 ml DAILY PRN PO 09/24/17 18:15 (Aspirin Chew) 81 mg DAILY CHEW 09/25/17 09:00 09/25/17 09:05 (Coreg) 3.125 mg Q12HR PO 09/24/17 21:00 09/25/17 09:05 (Pepcid) 10 mg BID PO 09/24/17 21:00 09/25/17 09:05 (Brilinta) 90 mg BID PO 09/24/17 21:00 09/25/17 09:05 (Lasix Inj) 20 mg BID@18 IV PUSH 09/25/17 09:00 09/25/17 17:42 (Zetia) 10 mg DAILY PO 09/25/17 09:00 (Pill Splitter) 1 ea UNSCH PRN OTHER 09/24/17 18:30 (Synthroid) 100 mcg DAILY@0600 PO 09/26/17 06:00 (Vasotec) 2.5 mg DAILY PO 09/26/17 09:00 Physical Exam Vital Signs Vital Signs Date Time Temp Pulse Resp B/P (MAP) Pulse Ox O2 Delivery O2 Flow Rate FiO2 09/25/17 16:21 79 09/25/17 16:00 98.0 72 20 148/79 (102) 97 09/25/17 12:12 98.1 69 18 157/77 (103) 98 09/25/17 12:00 74 09/25/17 10:30 98 09/25/17 09:03 98.1 74 20 131/68 (89) 98 09/25/17 08:00 82 09/25/17 04:00 98.4 74 16 118/56 (76) 96 09/25/17 03:43 72 09/25/17 00:00 98.2 76 16 128/63 (84) 94 09/24/17 23:42 68 09/24/17 20:00 97.5 79 17 150/71 (97) 99 09/24/17 19:53 78 Physical Exam GENERAL: Awake, alert. No distress. SKIN: Warm and dry. HEAD: Atraumatic. Normocephalic. EYES: Pupils equal and round. No scleral icterus. No injection or drainage. ENT: No nasal bleeding or discharge. Mucous membranes pink and moist. NECK: Trachea midline. No JVD. CARDIOVASCULAR: Regular rate and rhythm. R groin site with ecchymosis. RESPIRATORY: No accessory muscle use. Diminished bilateral lower lobes. Breath sounds equal bilaterally. Room air. GASTROINTESTINAL: Abdomen soft, non-tender, nondistended. MUSCULOSKELETAL: Extremities without clubbing, cyanosis, or edema. No obvious deformities. NEUROLOGICAL: Awake and alert. No obvious cranial nerve deficits. Motor grossly within normal limits. Five out of 5 muscle strength in the arms and legs. Normal speech. PSYCHIATRIC: Appropriate mood and affect; insight and judgment normal. Laboratory Laboratory Tests Test 09/25/17 05:30 Blood Urea Nitrogen 18 Creatinine 0.84 Random Glucose 81 Total Protein 6.0 Albumin 2.5 Calcium Level 8.4 Alkaline Phosphatase 68 Aspartate Amino Transf (AST/SGOT) 25 Alanine Aminotransferase (ALT/SGPT) 33 Total Bilirubin 1.0 Sodium Level 137 Potassium Level 3.9 Chloride Level 103 Carbon Dioxide Level 27.4 Anion Gap 7 Estimat Glomerular Filtration Rate 67 Free Thyroxine 1.13 Free Triiodothyronine (T3) pg/dL 1.09 Thyroid Stimulating Hormone 3rd Gen 18.200 Result Diagram: 09/24/17 1405 09/25/17 0530 Assessment and Plan Assessment and Plan Acute systolic congestive heart failure CAD with recent stent to RCA Paroxysmal atrial fibrillation Hypothyroidism Continue diuresis. Monitor I&O, electrolytes, renal function and bnp. Recent echocardiogram with EF 45-50%. Currently in sinus rhythm. Continue aspirin, brilinta, beta cele.Dr. White to cover tomorrow. Code Status Full Discussed Condition With Grace Plummer Sep 25, 2017 19:44
[2017-09-26] VITALS (8 sets, daily range): BP systolic 102–135; BP diastolic 54–64; PULSE 65–73; RESP 16–20; TEMP 97.7–98.6; O2SAT 96–98
[2017-09-26 05:12] LABS: HEMATOCRIT 36.9 % (35.0-46.0); HEMOGLOBIN 12.8 GM/DL (11.6-15.3); MEAN CELL VOLUME 86.5 FL (80.0-100.0); MEAN CORPUSCULAR HGB CONC 34.7 % (32.0-36.0); MEAN PLATELET VOLUME 7.2 FL (7.0-11.0); PLATELET COUNT 403 TH/MM3 (150-450); RED BLOOD COUNT 4.27 MIL/MM3 (4.00-5.30); RED CELL DISTRIBUTION WIDTH 14.8 % (11.6-17.2); WHITE BLOOD COUNT 11.7 TH/MM3 (4.0-11.0)
[2017-09-26 05:39] LABS: BICARBONATE 25.9 MEQ/L (21.0-32.0); CALCIUM 8.7 MG/DL (8.5-10.1); CREATININE 0.86 MG/DL (0.50-1.00)
[2017-09-26] MEDS: LEVOTHYROXINE SODIUM 100 MCG TAB PO SCH (06:12)
[2017-09-26] MEDS: CARVEDILOL 3.125 MG TAB PO SCH ×2 (08:55→23:23)
[2017-09-26] MEDS: EZETIMIBE 10 MG TAB PO SCH (08:55)
[2017-09-26] MEDS: FUROSEMIDE 20 MG/2 ML VIAL IV PUSH SCH ×2 (08:56→18:06)
[2017-09-26] MEDS: TICAGRELOR 90 MG TAB PO SCH ×2 (08:56→23:23)
[2017-09-26] MEDS: FAMOTIDINE 20 MG TAB PO SCH ×2 (08:56→23:24)
[2017-09-26] MEDS: ASPIRIN 81 MG CHEW TAB CHEW SCH (08:56)
[2017-09-26] MEDS: ENALAPRIL MALEATE 2.5 MG TAB PO SCH ×2 (08:57→10:53)
[2017-09-26] MEDS: DOCUSATE SODIUM 50 MG/SENNA 8.6 MG TAB PO SCH ×2 (08:57→21:00)
--- NOTE | 2017-09-26 09:26 | HHI.PR ---
Subjective Remarks feeling much better no chest pain or shortness of breath Objective Vitals Vital Signs Date Time Temp Pulse Resp B/P (MAP) Pulse Ox O2 Delivery O2 Flow Rate FiO2 09/26/17 08:00 97.7 66 20 128/64 (85) 98 09/26/17 04:00 98.6 71 16 118/58 (78) 96 09/26/17 03:48 72 09/26/17 00:00 97.9 67 17 135/60 (85) 97 09/25/17 23:46 75 09/25/17 20:00 98.1 75 16 138/68 (91) 98 09/25/17 19:42 75 09/25/17 16:21 79 09/25/17 16:00 98.0 72 20 148/79 (102) 97 09/25/17 12:12 98.1 69 18 157/77 (103) 98 09/25/17 12:00 74 09/25/17 10:30 98 I/O 09/25/17 09/25/17 09/25/17 09/26/17 09/26/17 09/26/17 07:00 15:00 23:00 07:00 15:00 23:00 Intake Total 90 ml 800 ml Output Total 450 ml 900 ml Balance -360 ml 800 ml -900 ml Intake Oral 90 ml 800 ml Output Urine Total 450 ml 900 ml # Voids 5 2 # Bowel Movements 0 Result Diagram: 09/26/17 0410 09/26/17 0410 Imaging Last Impressions Chest X-Ray 09/24/17 1352 Signed Impressions: Service Date/Time: Sunday, September 24, 2017 14:11 - CONCLUSION: Suspected mild bilateral pleural effusions being worse on the left with some accompanying atelectasis or consolidation at the bases. Bryan Gibbs MD CT Angiography 09/24/17 1352 Signed Impressions: Service Date/Time: Sunday, September 24, 2017 16:16 - CONCLUSION: 1. No evidence of PE. 2. Pulmonary edema with small to moderate bilateral pleural effusions and bibasilar atelectasis. Piero Higuera MD Objective Remarks awake and alert, no acute distress anicteric clear, no rales regular rhythm abdomen soft. mass- right lower quadrant/inguinal area- - likely hematoma- stable + ecchymoses- lower abdomen/right groin area- most on the right LQ area extremities- no edema neruo exam - non focal A/P Problem List: (1) CHF (congestive heart failure) ICD Code: I50.9 - Heart failure, unspecified Status: Acute (2) Atrial fibrillation ICD Code: I48.91 - Unspecified atrial fibrillation Assessment and Plan Ms. Grigsby is a 72-year-old female with medical history past A. fib, CAD with recent NSTEMI, cardiac shock and hypothyroidism who was recently discharged on 09/23 where she underwent PCI to RCA by due to NSTEMI. complicated by right retroperitoneal/groin hematoma - requiring transfusion 2 unis now admitted with acute shortness of breath Acute CHF -with underlying ischemic cardiomyopathy EF of 45-50%- clinically improved REcent CAD S/P PCI to RCA- 09/18 - continue on IV diuresis 20 mg q 12- change to po in am if continues to improve - Continue Brilinta, Coreg - Continue low-dose aspirin, Brilinta, - unable to tolerate statins. refused Zetia - started on PATRICE enalapril 2.5 mg daily -- Dr. White Atrial fibrillation- current in SR - on Brilinta/ASA Hypokalemia- resolved ff BMP Hypothyroidism- TSH elevated states she has been 88 mncg daily for years - increase to 100 mcg daily. needs PCP ff- recheck in 4- 6 weeks- for dose adjustments Right lower quadrant mass- likely hematoma from previous cath site S/P 2 units RBC last admission for acute anemia H and H good d/w Dr. White- get US for ff up- keep overnight DVT prophylaxis-SCDs, Up and ambulating-already DC planning - tomorrow if continues to improve Problem Qualifiers (1) CHF (congestive heart failure): Qualified Codes: I50.21 - Acute systolic (congestive) heart failure Ita Price MD Sep 26, 2017 09:26
--- NOTE | 2017-09-26 10:24 | RADRPT ---
EXAM DATE/TIME: 09/26/2017 09:45 [place] COMPARISON: No previous studies available for comparison. INDICATIONS : Post right leg cardiac catheterization. MEDICAL HISTORY : Hypercholesterolemia. CAD. Palpatations. Hemoptysis. SURGICAL HISTORY : section. Cardiac cath. Coronary stents. ENCOUNTER: Subsequent ACUITY: 4-6 days PAIN SCORE: 0/10 LOCATION: Right groin. AREA EVALUATED: Right groin. FINDINGS: The common femoral artery and vein are normal in appearance. There is no evidence of pseudoaneurysm o r hematoma. CONCLUSION: Normal right groin vascular ultrasound Bryan Choe MD on September 26, 2017 at 10:21 Board Certified Radiologist. This report was verified electronically.
--- NOTE | 2017-09-26 15:05 | PD.CARD.PN ---
Subjective Subjective Remarks No CP or SOB, feels better, edema improved Objective Medications Current Medications Medications (Trade) Dose Ordered Sig/Shaunna Route Start Time Stop Time Status Last Admin (NS Flush) 2 ml UNSCH PRN IVF 09/24/17 14:00 09/24/17 17:37 (Tylenol) 650 mg Q4H PRN PO 09/24/17 18:15 (Zofran Inj) 4 mg Q6H PRN IVP 09/24/17 18:15 (Narcan Inj) 0.4 mg UNSCH PRN IV PUSH 09/24/17 18:15 (Deborah-Colace) 1 tab BID PO 09/24/17 21:00 (Milk Of Magnesia Liq) 30 ml Q12H PRN PO 09/24/17 18:15 (Senokot) 17.2 mg Q12H PRN PO 09/24/17 18:15 (Dulcolax Supp) 10 mg DAILY PRN RECTAL 09/24/17 18:15 (Lactulose Liq) 30 ml DAILY PRN PO 09/24/17 18:15 (Aspirin Chew) 81 mg DAILY CHEW 09/25/17 09:00 09/26/17 08:56 (Coreg) 3.125 mg Q12HR PO 09/24/17 21:00 09/26/17 08:55 (Pepcid) 10 mg BID PO 09/24/17 21:00 09/26/17 08:56 (Brilinta) 90 mg BID PO 09/24/17 21:00 09/26/17 08:56 (Lasix Inj) 20 mg BID@ IV PUSH 09/25/17 09:00 09/26/17 08:56 (Zetia) 10 mg DAILY PO 09/25/17 09:00 09/26/17 08:55 (Pill Splitter) 1 ea UNSCH PRN OTHER 09/24/17 18:30 (Synthroid) 100 mcg DAILY@0600 PO 09/26/17 06:00 09/26/17 06:12 (Vasotec) 2.5 mg DAILY PO 09/26/17 09:00 09/26/17 10:53 Vital Signs / I&O Vital Signs Date Time Temp Pulse Resp B/P (MAP) Pulse Ox O2 Delivery O2 Flow Rate FiO2 09/26/17 12:00 98.1 65 20 124/64 (84) 98 09/26/17 08:00 97.7 66 20 128/64 (85) 98 09/26/17 04:00 98.6 71 16 118/58 (78) 96 09/26/17 03:48 72 09/26/17 00:00 97.9 67 17 135/60 (85) 97 09/25/17 23:46 75 09/25/17 20:00 98.1 75 16 138/68 (91) 98 09/25/17 19:42 75 09/25/17 16:21 79 09/25/17 16:00 98.0 72 20 148/79 (102) 97 I/O 09/25/17 09/25/17 09/25/17 09/26/17 09/26/17 09/26/17 07:00 15:00 23:00 07:00 15:00 23:00 Intake Total 90 ml 800 ml Output Total 450 ml 900 ml Balance -360 ml 800 ml -900 ml Intake Oral 90 ml 800 ml Output Urine Total 450 ml 900 ml # Voids 5 2 # Bowel Movements 0 Physical Exam GENERAL: In NAD. SKIN: Warm and dry. HEAD: Normocephalic. EYES: No scleral icterus. No injection or drainage. NECK: Supple, trachea midline. No JVD or lymphadenopathy. CARDIOVASCULAR: Regular rate and rhythm without murmurs, gallops, or rubs. RESPIRATORY: Breath sounds equal bilaterally. No accessory muscle use. GASTROINTESTINAL: Abdomen soft, non-tender, nondistended. MUSCULOSKELETAL: No cyanosis, or edema. R groin hematoma Laboratory Laboratory Tests Test 09/26/17 04:10 White Blood Count 11.7 TH/MM3 Red Blood Count 4.27 MIL/MM3 Hemoglobin 12.8 GM/DL Hematocrit 36.9 % Mean Corpuscular Volume 86.5 FL Mean Corpuscular Hemoglobin 30.0 PG Mean Corpuscular Hemoglobin Concent 34.7 % Red Cell Distribution Width 14.8 % Platelet Count 403 TH/MM3 Mean Platelet Volume 7.2 FL Blood Urea Nitrogen 22 MG/DL Creatinine 0.86 MG/DL Random Glucose 91 MG/DL Calcium Level 8.7 MG/DL Sodium Level 134 MEQ/L Potassium Level 3.7 MEQ/L Chloride Level 99 MEQ/L Carbon Dioxide Level 25.9 MEQ/L Anion Gap 9 MEQ/L Estimat Glomerular Filtration Rate 65 ML/MIN B-Type Natriuretic Peptide 725 PG/ML Assessment and Plan Problem List: (1) CHF (congestive heart failure) ICD Codes: I50.9 - Heart failure, unspecified Status: Acute (2) STEMI (ST elevation myocardial infarction) ICD Codes: I21.3 - ST elevation (STEMI) myocardial infarction of unspecified site (3) Cardiogenic shock ICD Codes: R57.0 - Cardiogenic shock (4) CAD (coronary artery disease) ICD Codes: I25.10 - Atherosclerotic heart disease of [place] coronary artery without angina pectoris (5) Atrial fibrillation ICD Codes: I48.91 - Unspecified atrial fibrillation (6) Anemia ICD Codes: D64.9 - Anemia, unspecified Assessment and Plan Recent STEMI and cardiogenic shock, treated with RCA stenting. Presented with CHF, continue diuresis. R groin hematoma stable. Continue Brilinta, baby ASA and beta cele. Did not tolerate statins. Increase activity, PT. Problem Qualifiers (1) CHF (congestive heart failure): Qualified Codes: I50.21 - Acute systolic (congestive) heart failure Josie White MD Sep 26, 2017 15:05
[2017-09-27] VITALS: BP 119/55; PULSE 67; PULSE 68; RESP 18; TEMP 97.6; O2SAT 100
[2017-09-27 04:00] VITALS: BP 97/53; PULSE 56; PULSE 66; RESP 16; TEMP 97.3; O2SAT 97
[2017-09-27] MEDS: LEVOTHYROXINE SODIUM 100 MCG TAB PO SCH (05:14)
--- NOTE | 2017-09-27 07:20 | HHI.DS ---
Discharge Summary Admission Date Sep 24, 2017 at 17:24 Discharge Date: Sep 27, 2017 Admitting Diagnosis CHF exacerbation (1) CHF (congestive heart failure) ICD Code: I50.9 - Heart failure, unspecified Diagnosis: Principal Status: Acute (2) Atrial fibrillation ICD Code: I48.91 - Unspecified atrial fibrillation Procedures none Brief History - From Admission Ms. Grigsby is a 72-year-old female with past medical history A. fib, CAD with recent NSTEMI, cardiac shock and hypothyroidism who was recently discharged on 09/23. Patient was recently admitted on 09/18 for NSTEMI and underwent PCI to RCA by . Patient subsequently developed hypotension treated with IV pressors. She also developed anemia due and right groin hematoma for which GI was consulted. Patient was transfused with 2 units of PRBCs, no EGD or colonoscopy done by GI services. She was cleared for discharge and went home. Patient reports that yesterday after leaving she began to experience shortness of breath when lying down and trying to go to bed. Sitting up and resting will decrease shortness of breath, lying down and activity will exacerbate SOB. She also reports cough which is nonproductive. She denies any fevers, chills, nausea, vomiting, diarrhea or headaches. Patient reports since leaving hospital she has noticed that her clothing has fit tighter and she is also feel tighter. Since being in the hospital reports that she has gained 10 pounds. Currently she is seen and examined sitting on the bedside commode and reports she just received Lasix. Currently she denies any shortness of breath on room air, denies chest pain or palpitations, lightheadedness or dizziness. She is hoping to possibly go home tomorrow. CBC/BMP: 09/26/17 0410 09/26/17 0410 Significant Findings Laboratory Tests Test 09/24/17 14:05 09/25/17 05:30 09/26/17 04:10 White Blood Count 11.6 TH/MM3 (4.0-11.0) 11.7 TH/MM3 (4.0-11.0) Neutrophils (%) (Auto) 75.6 % (16.0-70.0) Monocytes (%) (Auto) 10.7 % (0.0-8.0) Neutrophils # (Auto) 8.8 TH/MM3 (1.8-7.7) Monocytes # (Auto) 1.2 TH/MM3 (0-0.9) Albumin 2.7 GM/DL (3.4-5.0) 2.5 GM/DL (3.4-5.0) Potassium Level 3.3 MEQ/L (3.5-5.1) Estimat Glomerular Filtration Rate 60 ML/MIN (>89) 67 ML/MIN (>89) 65 ML/MIN (>89) Troponin I 2.70 NG/ML (0.02-0.05) B-Type Natriuretic Peptide 1002 PG/ML (0-100) 725 PG/ML (0-100) Total Protein 6.0 GM/DL (6.4-8.2) Calcium Level 8.4 MG/DL (8.5-10.1) Free Triiodothyronine (T3) pg/dL 1.09 PG/ML (2.18-3.98) Thyroid Stimulating Hormone 3rd Gen 18.200 uIU/ML (0.358-3.740) Blood Urea Nitrogen 22 MG/DL (7-18) Sodium Level 134 MEQ/L (136-145) Imaging Last Impressions Lower Extremity Ultrasound 09/26/17 0000 Signed Impressions: Service Date/Time: Tuesday, September 26, 2017 09:45 - CONCLUSION: Normal right groin vascular ultrasound Bryan Choe MD Chest X-Ray 09/24/17 1353 Signed Impressions: Service Date/Time: Sunday, September 24, 2017 14:11 - CONCLUSION: Suspected mild bilateral pleural effusions being worse on the left with some accompanying atelectasis or consolidation at the bases. Bryan Gibbs MD CT Angiography 09/24/17 1350 Signed Impressions: Service Date/Time: Sunday, September 24, 2017 16:16 - CONCLUSION: 1. No evidence of PE. 2. Pulmonary edema with small to moderate bilateral pleural effusions and bibasilar atelectasis. Piero Higuera MD PE at Discharge awake and alert, no acute distress anicteric clear, no rales regular rhythm abdomen soft. mass- right lower quadrant/inguinal area- - likely hematoma- stable + ecchymoses- lower abdomen/right groin area- most on the right LQ area extremities- no edema neruo exam - non focal Pt update on day of discharge Feels better, no sob, cough, cp. Was ambulating in the hallways no lightheadedness. No fever or chills. No n/v/d/c. Hospital Course Ms. Grigsby is a 72-year-old female with medical history past A. fib, CAD with recent NSTEMI, cardiac shock and hypothyroidism who was recently discharged on 09/23 where she underwent PCI to RCA by due to NSTEMI. complicated by right retroperitoneal/groin hematoma - requiring transfusion 2 unis now admitted with acute shortness of breath Acute CHF -with underlying ischemic cardiomyopathy EF of 45-50%- clinically improved REcent CAD S/P PCI to RCA- 09/18 - continue on IV diuresis 20 mg q 12- change to po in am if continues to improve - Continue Brilinta, Coreg - Continue low-dose aspirin, Brilinta, - unable to tolerate statins. refused Zetia - started on PATRICE enalapril 2.5 mg daily -- Dr. White Atrial fibrillation- current in SR - on Brilinta/ASA Hypokalemia- resolved ff BMP Hypothyroidism- TSH elevated states she has been 88 mncg daily for years - increase to 100 mcg daily. needs PCP ff- recheck in 4- 6 weeks- for dose adjustments Right lower quadrant mass- likely hematoma from previous cath site. Improved. S/P 2 units RBC last admission for acute anemia H and H good d/w Dr. White DVT prophylaxis-SCDs, Up and ambulating-already Patient improved cleared by cardiology for DC. Discussed with Dr White meds for DC. Note patient can't tolerate cholesterol meds and says he is not on this meds. Patient to follow up as OP with PCP and consultants Patient is refusing home health Pt Condition on Discharge: Stable Discharge Disposition: Disch w/ Home Health Serv Discharge Time: > 30 minutes Discharge Instructions DIET: Follow Instructions for: Heart Healthy Diet Activities you can perform: Regular-No Restrictions Follow up Referrals: Cardiology - 2 Weeks Cardiology PCP Follow-up - 2-3 Days PCP Follow-up New Medications: Levothyroxine (Synthroid) 100 Mcg Tab 100 MCG PO DAILY for Thyroid, #30 TAB 0 Refills Ezetimibe (Zetia) 10 Mg Tab 10 MG PO DAILY for Blood Sugar Management, #30 TAB Furosemide (Furosemide) 20 Mg Tab 20 MG PO DAILY for chf, #30 TAB Losartan (Cozaar) 25 Mg Tab 12.5 MG PO DAILY for chf, #30 TAB Spironolactone (Aldactone) 25 Mg Tab 25 MG PO DAILY for chf, #30 TAB Continued Medications: Aspirin (Aspirin) 81 Mg Chew 81 MG CHEW DAILY, TAB 0 Refills Carvedilol (Coreg) 3.125 Mg Tab 3.125 MG PO Q12HR for Blood Pressure Management, #60 TAB Famotidine (Pepcid) 20 Mg Tab 10 MG PO BID, #60 TAB 0 Refills Ticagrelor (Brilinta) 90 Mg Tab 90 MG PO BID for Blood Clot Prevention, #60 TAB Nohemi Rivera MD Sep 27, 2017 07:20
[2017-09-27 08:00] VITALS: BP 104/56; PULSE 66; RESP 20; TEMP 97.9; O2SAT 99
--- NOTE | 2017-09-27 08:39 | PD.CARD.PN ---
Subjective Subjective Remarks No CP or SOB, feels tired, c/o cough Objective Medications Current Medications Medications (Trade) Dose Ordered Sig/Shaunna Route Start Time Stop Time Status Last Admin (NS Flush) 2 ml UNSCH PRN IVF 09/24/17 14:00 09/24/17 17:37 (Tylenol) 650 mg Q4H PRN PO 09/24/17 18:15 09/27/17 00:13 (Zofran Inj) 4 mg Q6H PRN IVP 09/24/17 18:15 (Narcan Inj) 0.4 mg UNSCH PRN IV PUSH 09/24/17 18:15 (Deborah-Colace) 1 tab BID PO 09/24/17 21:00 (Milk Of Magnesia Liq) 30 ml Q12H PRN PO 09/24/17 18:15 (Senokot) 17.2 mg Q12H PRN PO 09/24/17 18:15 (Dulcolax Supp) 10 mg DAILY PRN RECTAL 09/24/17 18:15 (Lactulose Liq) 30 ml DAILY PRN PO 09/24/17 18:15 (Aspirin Chew) 81 mg DAILY CHEW 09/25/17 09:00 09/26/17 08:56 (Coreg) 3.125 mg Q12HR PO 09/24/17 21:00 09/26/17 23:23 (Pepcid) 10 mg BID PO 09/24/17 21:00 09/26/17 23:24 (Brilinta) 90 mg BID PO 09/24/17 21:00 09/26/17 23:23 (Lasix Inj) 20 mg BID@ IV PUSH 09/25/17 09:00 09/26/17 18:06 (Zetia) 10 mg DAILY PO 09/25/17 09:00 09/26/17 08:55 (Pill Splitter) 1 ea UNSCH PRN OTHER 09/24/17 18:30 (Synthroid) 100 mcg DAILY@0600 PO 09/26/17 06:00 09/27/17 05:14 (Vasotec) 2.5 mg DAILY PO 09/26/17 09:00 09/26/17 10:53 Vital Signs / I&O Vital Signs Date Time Temp Pulse Resp B/P (MAP) Pulse Ox O2 Delivery O2 Flow Rate FiO2 09/27/17 08:00 97.9 66 20 104/56 (72) 99 09/27/17 04:00 Room Air 09/27/17 04:00 97.3 66 16 97/53 (68) 97 09/27/17 04:00 56 09/27/17 00:00 97.6 68 18 119/55 (76) 100 09/27/17 00:00 67 09/27/17 00:00 Room Air 09/26/17 20:00 98.5 69 18 102/54 (70) 97 09/26/17 20:00 69 09/26/17 20:00 Room Air 09/26/17 16:00 98.4 71 20 125/61 (82) 98 09/26/17 15:45 70 09/26/17 12:00 98.1 65 20 124/64 (84) 98 09/26/17 12:00 72 I/O 09/26/17 09/26/17 09/26/17 09/27/17 09/27/17 09/27/17 07:00 15:00 23:00 07:00 15:00 23:00 Output Total 900 ml Balance -900 ml Output Urine Total 900 ml # Voids 5 3 # Bowel Movements 1 1 Physical Exam GENERAL: In NAD. SKIN: Warm and dry. HEAD: Normocephalic. EYES: No scleral icterus. No injection or drainage. NECK: Supple, trachea midline. No JVD or lymphadenopathy. CARDIOVASCULAR: Regular rate and rhythm without murmurs, gallops, or rubs. RESPIRATORY: Breath sounds equal bilaterally. No accessory muscle use. GASTROINTESTINAL: Abdomen soft, non-tender, nondistended. MUSCULOSKELETAL: No cyanosis, or edema. R groin hematoma Assessment and Plan Problem List: (1) CHF (congestive heart failure) ICD Codes: I50.9 - Heart failure, unspecified Status: Acute (2) STEMI (ST elevation myocardial infarction) ICD Codes: I21.3 - ST elevation (STEMI) myocardial infarction of unspecified site (3) Cardiogenic shock ICD Codes: R57.0 - Cardiogenic shock (4) CAD (coronary artery disease) ICD Codes: I25.10 - Atherosclerotic heart disease of [place] coronary artery without angina pectoris (5) Atrial fibrillation ICD Codes: I48.91 - Unspecified atrial fibrillation (6) Anemia ICD Codes: D64.9 - Anemia, unspecified Assessment and Plan CHF improved. Recent STEMI and cardiogenic shock, treated with RCA stenting. Continue diuresis, switch to PO furosemide and spironolactone. Switch PATRICE-I to ARB. Continue Brilinta, baby ASA, beta cele and Zetia. Did not tolerate statins. Increase activity. Problem Qualifiers (1) CHF (congestive heart failure): Qualified Codes: I50.21 - Acute systolic (congestive) heart failure Josie White MD Sep 27, 2017 08:39
[2017-09-27] MEDS ORDERED: FURO20TA PO (08:40)
[2017-09-27] MEDS ORDERED: EZET10 PO (08:40)
[2017-09-27] MEDS ORDERED: COZA25TA PO (08:40)
[2017-09-27] MEDS ORDERED: SPIR25 PO (08:40)
--- NOTE | 2017-09-27 08:40 | HHI.FF ---
Face to Face Verification Diagnosis: (1) CHF (congestive heart failure) (2) Cardiogenic shock (3) Atrial fibrillation (4) Anemia (5) CAD (coronary artery disease) (6) STEMI (ST elevation myocardial infarction) (7) Stented coronary artery Physical Therapy Order: Evaluate and Treat Home Health Nursing Order: Medical education Signs/symptoms of disease process Diabetic education CHF education Medication education-adverse effect Nursing assessment with vital signs I have seen patient Heidi Grigsby on 09/27/17. My clinical findings support the need for the requested home health care services because: Ltd mobility - disease progression Patient has SOB I certify that my clinical findings support that this patient is homebound because: Post-op weakness Nohemi Rivera MD Sep 27, 2017 08:40
[2017-09-27] MEDS ORDERED: SPIRONOLACTONE 25 MG TAB PO SCH (09:00)
[2017-09-27] MEDS ORDERED: LOSARTAN 25 MG TAB PO SCH (09:00)
[2017-09-27] MEDS: EZETIMIBE 10 MG TAB PO SCH ×2 (09:43→10:32)
[2017-09-27] MEDS: ASPIRIN 81 MG CHEW TAB CHEW SCH ×2 (09:43→10:32)
[2017-09-27] MEDS: TICAGRELOR 90 MG TAB PO SCH (09:43)
[2017-09-27] MEDS: FAMOTIDINE 20 MG TAB PO SCH (09:43)
[2017-09-27] MEDS: DOCUSATE SODIUM 50 MG/SENNA 8.6 MG TAB PO SCH (09:43)
[2017-09-27] MEDS: CARVEDILOL 3.125 MG TAB PO SCH (09:44)
[2017-09-27] MEDS: FUROSEMIDE 20 MG TAB PO SCH ×2 (09:44→10:32)
[2017-09-27 11:00] VITALS: BP 129/61; PULSE 58; RESP 20; TEMP 97.7; O2SAT 100
[2017-09-27] MEDS ORDERED: LEVO.1 PO (12:06)
== END 2017-09-27 11:48 | disposition home or self-care (01) | DRG 280 ==
LOC: NEPC 13:17 → NEDA 17:24 → MERGE 17:24 → N04A 18:39
PROVIDERS: ADMIT Hospitalist; ATTEND Hospitalist
DX: I50.21 Acute systolic (congestive) heart failure (principal); J96.91 Respiratory failure, unspecified with hypoxia; I21.3 ST elevation (STEMI) myocardial infarction of unspecified site; J98.11 Atelectasis; I97.630 Postprocedural hematoma of a circulatory system organ or structure following a cardiac catheterization; I25.10 Atherosclerotic heart disease of native coronary artery without angina pectoris; I48.0 Paroxysmal atrial fibrillation; I44.7 Left bundle-branch block, unspecified; E87.6 Hypokalemia; E03.9 Hypothyroidism, unspecified; D64.9 Anemia, unspecified; E78.00 Pure hypercholesterolemia, unspecified; Z79.01 Long term (current) use of anticoagulants; Z95.5 Presence of coronary angioplasty implant and graft
CPT/HCPCS: 71045; 71275; 80048; 80053; 82550; 82552; 83880; 84439; 84443; 84481; 84484; 85025; 85027; 85610; 85730; 93005; 93926; 99285; J1940; Q9967